=== PATIENT | male | born 1990 | race Two or more races ===

== ENCOUNTER 2021-08-13 23:30 | Emergency (ER) | payer SELFPAY ==
[~2021-08-13] VITALS: Ht 170.2 cm; Wt 72.6 kg
[2021-08-13 23:37] VITALS: BP 120/82
--- NOTE | 2021-08-13 23:37 | NUR ---
Placed patient on bed 4.
--- NOTE | 2021-08-13 23:37 | NUR ---
[place] [employer] at bedside with patient.
--- NOTE | 2021-08-13 23:41 | NUR ---
Dr. Vargas at bedside to exam patient.
[2021-08-14 00:16] LABS: BASOPHILS # (AUTO) 0.1 K/uL (0.00-0.22); BASOPHILS % (AUTO) 0.5 % (0.0-2.0); EOSINOPHILS # (AUTO) 0.1 K/uL (0-0.4); EOSINOPHILS % (AUTO) 1.3 % (0.0-4.0); HEMATOCRIT 45.8 % (36-52); HEMOGLOBIN 15.5 g/dL (12.0-18.0); LYMPHOCYTES # (AUTO) 2.2 K/uL (2.0-11.5); LYMPHOCYTES % (AUTO) 20.5 % (20.5-51.1); MEAN CORPUSCULAR HEMOGLOBIN 29 pg (27-31); MEAN CORPUSCULAR HGB CONC 34 g/dL (33-37); MEAN CORPUSCULAR VOLUME 86.5 fL (80-94); MONOCYTES # (AUTO) 1.1 K/uL (0.8-1.0); MONOCYTES % (AUTO) 10.5 % (1.7-9.3); NEUTROPHILS # (AUTO) 7.1 K/uL (1.8-7.7); NEUTROPHILS % (AUTO) 67.2 % (42.2-75.2); PLATELET COUNT (AUTO) 259 K/uL (140-450); RED CELL DISTRIBUTION WIDTH 13.6 % (11.6-13.7); WHITE BLOOD COUNT (AUTO) 10.6 K/uL (4.8-10.8)
[2021-08-14] MEDS ORDERED: FEBU40TA PO (00:39)
[2021-08-14] MEDS ORDERED: ATI.5 PO (00:39)
[2021-08-14] MEDS ORDERED: GABA300C PO (00:39)
[2021-08-14] MEDS ORDERED: ASCO500T95 PO (00:39)
[2021-08-14] MEDS ORDERED: TAMS0.4C96 PO (00:39)
[2021-08-14] MEDS ORDERED: HYDR100T49 PO (00:39)
[2021-08-14] MEDS ORDERED: DOCU-299 PO (00:39)
[2021-08-14] MEDS ORDERED: BACL10TA4 PO (00:39)
[2021-08-14 01:08] LABS: ACETAMINOPHEN < 0.5 ug/ml (10-30); ALBUMIN 3.7 g/dL (3.4-5.0); ASPARTATE AMINOTRANSFERASE 37 U/L (15-37); CARBON DIOXIDE 26.3 mmol/L (21-32); CHLORIDE 100 mmol/L (98-107); CREATININE 0.9 mg/dL (0.6-1.3); GFR ARICAN-AMERICAN 128 mL/min (>90); GLUCOSE 116 mg/dL (74-106); POTASSIUM 3.3 mmol/L (3.5-5.1); SALICYLATE < 2.8 mg/dL (2.8-20.0); SODIUM SERUM 136 mmol/L (136-145); TOTAL BILIRUBIN 0.4 mg/dL (0.0-1.0); UREA NITROGEN, BLOOD 6 mg/dL (7-18)
--- NOTE | 2021-08-14 01:20 | NUR ---
PT PROVIDED URINE.
[2021-08-14 01:33] LABS: APPEARANCE,URINE CLEAR (CLEAR); BILIRUBIN,URINE NEGATIVE (NEGATIVE); BLOOD, URINE NEGATIVE (NEGATIVE); COLOR,URINE YELLOW (YELLOW); LEUKOCYTE ESTERASE ,URINE NEGATIVE (NEGATIVE); NITRITE, URINE NEGATIVE (NEGATIVE); UGLUCOSE NEGATIVE (NEGATIVE)
[2021-08-14 01:49] LABS: BARBITURATE, URINE NEGATIVE ng/ml (NEG <=200); BENZODIAZEPINE, URINE NEGATIVE ng/mL (NEG <=200); CANNABINOID, URINE NEGATIVE ng/mL (NEG <=50); COCAINE, URINE NEGATIVE ng/mL (NEG <=300); OPIATE, URINE NEGATIVE ng/mL (NEG <=2000); PHENCYCLIDINE SCREEN,URINE NEGATIVE ng/mL (NEG <=25)
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
[2021-08-14 03:10] VITALS: BP 118/82
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
--- NOTE | 2021-08-14 04:06 | NUR ---
The patient's care was reviewed and supervised by Gavi Johnson RN.
== END 2021-08-14 03:10 | disposition home or self-care (01) ==
LOC: MED 23:30
DX: S00.03XA Contusion of scalp, initial encounter (principal); F10.129 Alcohol abuse with intoxication, unspecified; Z79.899 Other long term (current) drug therapy; V43.92XA Unspecified car occupant injured in collision with other type car in traffic accident, initial encounter; Y93.89 Activity, other specified; Y92.89 Other specified places as the place of occurrence of the external cause; Y99.8 Other external cause status
CPT/HCPCS: 36415; 70450; 71045; 72125; 80053; 80305; 81003; 85025; 99285; G0480; G0482; Q0092; 93005